=== PATIENT | female | born 1995 | race Caucasian/White ===

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

== ENCOUNTER 2017-01-02 11:31 | Emergency (ER) | payer OTHER ==
[~2017-01-02] VITALS: Ht 167.6 cm; Wt 81.0 kg
[~2017-01-02 11:31] MED LIST changes: +FLEXERIL10 MG PO; +NAPROSYN500 MG PO
[2017-01-02 16:19] VITALS: BP 123/83
== END 2017-01-02 16:42 | disposition home or self-care (01) ==
LOC: EME 11:31
DX: F32.9 Major depressive disorder, single episode, unspecified (principal); F43.20 Adjustment disorder, unspecified
CPT/HCPCS: 90837; 99281; 99284

== ENCOUNTER 2017-01-22 11:37 | Inpatient (IN) | payer OTHER ==
[~2017-01-22] VITALS: Ht 160 cm; Wt 106.3 kg
[2017-01-22 12:52] LABS: ADD MIUA? YES; BILIRUBIN NEGATIVE; BLOOD NEGATIVE; COLOR YELLOW ((YELLOW)); GLUCOSE (STRIP) NEGATIVE; KETONES NEGATIVE; LEUKOCYTES NEGATIVE; NITRITE NEGATIVE; PROTEIN (STRIP) 30; SPECIFIC GRAVITY 1.015 (1.000-1.030); UROBILINOGEN 0.2 MG/DL (0.2-1.0)
[2017-01-22 13:14] LABS: AMPHETAMINE NEGATIVE (500 ng/mL); BENZODIAZEPINES PRESUMPTIVE POSITIVE (150 ng/mL); COCAINE NEGATIVE (150 ng/mL); METHAMPHETAMINE NEGATIVE (500 ng/mL); OPIATES (MORPHINE) NEGATIVE (100 ng/mL); PHENCYCLIDINE NEGATIVE (25 ng/mL); THC CANNABINOIDS NEGATIVE (50 ng/mL)
[2017-01-22 13:15] LABS: ADD MEDTOX COMMENT Y; BARBITURATES NEGATIVE (200 ng/mL); INTERNAL CONTROLS VALID? YES; METHADONE NEGATIVE (200 ng/mL); OXYCODONE NEGATIVE (100 ng/mL); PROPOXYPHENE NEGATIVE (300 ng/mL); TRICYCLIC ANTIDEPRESSANTS NEGATIVE (300 ng/mL)
[2017-01-22 13:34] LABS: RED BLOOD CELLS NONE SEEN /HPF (0-5); WHITE BLOOD CELLS 0-5 /HPF (0-5)
[2017-01-22 13:35] LABS: AMORPHOUS PHOSPHATE CRYSTALS 2+; BACTERIA 3+ /HPF; CASTS NONE SEEN /LPF; CRYSTALS PRESENT; EPITHELIAL CELLS 1+ /HPF; MUCUS NONE SEEN /LPF
[2017-01-22 13:48] LABS: BENZODIAZEPINES QUANT VALUE 0 NG/ML; BENZODIAZEPINES, URINE SCREEN Negative (200 ng/mL)
[2017-01-22 14:09] LABS: EOSINOPHIL (%) 1.3 % (0-5); EOSINOPHIL COUNT 0.1 K/uL (0-0.3); HEMATOCRIT 43.6 % (36.0-46.0); IMMATURE GRANULOCYTE (%) 0.5 % (0.0-0.7); INSTRUMENT ABS NEUTROPHIL CT 5.9 K/uL; LYMPHOCYTE COUNT 2.1 K/uL (1.0-2.8); MCH 30.8 PG (29.0-34.0); MCHC 33.5 G/DL (30.0-36.0); MEAN PLAT.VOLUME 9.3 uM^3 (9.5-12.4); MONOCYTE (%) 6.5 % (3-12); MONOCYTE COUNT 0.6 K/uL (0-0.8); NEUTROPHIL (%) 67.5 % (45-76); NEUTROPHIL COUNT 5.9 K/uL (1.8-6.4); PLATELET COUNT 265 K/uL (156-360); RBC DIS.WIDTH-CV 12.3 % (11.8-14.6); RBC DIS.WIDTH-SD 41.8 % (39-53); RED BLOOD COUNT 4.74 M/uL (3.80-5.20); WHITE BLOOD COUNT 8.7 K/uL (4.1-10.2)
[2017-01-22 14:17] LABS: CHLORIDE 109 mEq/L (99-109); POTASSIUM 4.3 mEq/L (3.7-5.4); SODIUM 138 mEq/L (136-147)
[2017-01-22 14:19] LABS: GLUCOSE 122 mg/dL (70-99)
[2017-01-22 14:21] LABS: ANION GAP 8 MEQ/L (2-14)
[2017-01-22 14:22] LABS: SERUM ETHYL ALCOHOL < 10 mg/dL
[2017-01-22 14:23] LABS: GFR ESTIMATE (CALCULATED) > 59 mL/min/
[2017-01-22 14:24] LABS: UREA NITROGEN (BUN) 9 mg/dL (9-23)
[2017-01-22 14:32] LABS: QUANTITATIVE HCG < 4.0 MIU/ML
[2017-01-22 16:36] VITALS: BP 126/79
[2017-01-22] MEDS ORDERED: TOPIRAMATE50 MG PO (16:51)
[2017-01-22] MEDS ORDERED: DIVALPROEX SOD500 M1 PO (16:53)
[2017-01-22] MEDS ORDERED: LORAZEPAM0.5 MG PO (16:55)
[2017-01-22] MEDS ORDERED: ABILIFY5 MG PO (16:56)
[2017-01-22 17:26] VITALS: BP 126/79
[2017-01-23 08:04] VITALS: BP 125/62
[2017-01-23 15:28] VITALS: BP 122/71
[2017-01-24 07:26] VITALS: BP 119/58
[2017-01-24 15:38] VITALS: BP 124/71
[2017-01-25 07:34] VITALS: BP 97/58
[2017-01-25 16:34] VITALS: BP 113/56
[2017-01-26 07:59] VITALS: BP 113/67
[2017-01-26] MEDS ORDERED: DESYREL100 MG PO (09:02)
[2017-01-26] MEDS ORDERED: ARIPIPRAZOLE5 MG PO (09:02)
== END 2017-01-26 11:04 | disposition home or self-care (01) | DRG 882 ==
LOC: EME 11:37 → 1WEST 13:25 → EDOF 13:25 → 1WEST 16:33
PROVIDERS: Emergency Medicine
DX: F43.23 Adjustment disorder with mixed anxiety and depressed mood (principal); F70 Mild intellectual disabilities; R45.851 Suicidal ideations
CPT/HCPCS: 80048; 80164; 81003; 82306; 82607; 82746; 84443; 84702; 84999; 85025; 90839; 97150 GO; 97165 GO; 99281; 99285; G0480

== ENCOUNTER 2017-04-15 20:06 | Inpatient (IN) | payer OTHER ==
[~2017-04-15] VITALS: Ht 160 cm; Wt 105.7 kg
[~2017-04-15 20:06] MED LIST changes: +ABILIFY5 MG PO; +ARIPIPRAZOLE5 MG PO; +DESYREL100 MG PO; +DIVALPROEX SOD500 M1 PO; +LORAZEPAM0.5 MG PO; +TOPIRAMATE50 MG PO
[2017-04-15 20:29] LABS: BASOPHIL COUNT 0.1 K/uL (0-0.1); EOSINOPHIL (%) 1.9 % (0-5); EOSINOPHIL COUNT 0.2 K/uL (0-0.3); IMMATURE GRANULOCYTE (%) 0.3 % (0.0-0.7); INSTRUMENT ABS NEUTROPHIL CT 4.9 K/uL; LYMPHOCYTE COUNT 3.2 K/uL (1.0-2.8); MCH 30.8 PG (29.0-34.0); MCV 93.3 FL (83-99); MONOCYTE (%) 8.3 % (3-12); MONOCYTE COUNT 0.8 K/uL (0-0.8); NEUTROPHIL (%) 53.5 % (45-76); NEUTROPHIL COUNT 4.9 K/uL (1.8-6.4); PLATELET COUNT 293 K/uL (156-360); RBC DIS.WIDTH-CV 12.1 % (11.8-14.6); RBC DIS.WIDTH-SD 42.1 % (39-53); RED BLOOD COUNT 4.61 M/uL (3.80-5.20); WHITE BLOOD COUNT 9.1 K/uL (4.1-10.2)
[2017-04-15 20:39] LABS: CHLORIDE 109 mEq/L (99-109); POTASSIUM 3.9 mEq/L (3.7-5.4); SODIUM 137 mEq/L (136-147)
[2017-04-15 20:41] LABS: GLUCOSE 93 mg/dL (70-99)
[2017-04-15 20:43] LABS: ANION GAP 9 MEQ/L (2-14); TOTAL BILIRUBIN 0.3 mg/dL (0.0-1.0)
[2017-04-15 20:44] LABS: SERUM ETHYL ALCOHOL < 10 mg/dL
[2017-04-15 20:45] LABS: GFR ESTIMATE (CALCULATED) > 59 mL/min/
[2017-04-15 20:46] LABS: ALKALINE PHOSPHATASE 140 IU/L (3-129)
[2017-04-15 20:47] LABS: UREA NITROGEN (BUN) 13 mg/dL (9-23)
[2017-04-15 20:49] LABS: SALICYLATE < 5.0 MG/DL (15-30)
[2017-04-15 20:55] LABS: QUANTITATIVE HCG < 4.0 MIU/ML
[2017-04-15 21:03] LABS: ADD MEDTOX COMMENT Y; AMPHETAMINE NEGATIVE (500 ng/mL); BARBITURATES NEGATIVE (200 ng/mL); BENZODIAZEPINES PRESUMPTIVE POSITIVE (150 ng/mL); COCAINE NEGATIVE (150 ng/mL); INTERNAL CONTROLS VALID? YES; METHADONE NEGATIVE (200 ng/mL); METHAMPHETAMINE NEGATIVE (500 ng/mL); OPIATES (MORPHINE) NEGATIVE (100 ng/mL); OXYCODONE NEGATIVE (100 ng/mL); PHENCYCLIDINE NEGATIVE (25 ng/mL); PROPOXYPHENE NEGATIVE (300 ng/mL); THC CANNABINOIDS NEGATIVE (50 ng/mL); TRICYCLIC ANTIDEPRESSANTS NEGATIVE (300 ng/mL)
[2017-04-15 21:33] LABS: BENZODIAZEPINES QUANT VALUE 0 NG/ML; BENZODIAZEPINES, URINE SCREEN Negative (200 ng/mL)
[2017-04-16 03:16] VITALS: BP 112/74
[2017-04-16 08:21] VITALS: BP 134/82
[2017-04-16 16:30] VITALS: BP 124/69
[2017-04-17 08:00] VITALS: BP 120/69
[2017-04-17 15:19] VITALS: BP 134/88
[2017-04-18 08:46] VITALS: BP 132/69
[2017-04-18 15:58] VITALS: BP 137/80
[2017-04-19 08:12] VITALS: BP 123/62
[2017-04-19 15:41] VITALS: BP 125/62
[2017-04-20] MEDS ORDERED: SERTRALINE HCL50 MG PO (08:53)
[2017-04-20 08:56] VITALS: BP 128/72
== END 2017-04-20 12:03 | disposition home or self-care (01) | DRG 885 ==
LOC: EME 20:06 → EDOF 04-16 00:04 → 1WEST 04-16 00:04 → ENRESERV 04-16 00:33 → 1WEST 04-16 03:07
PROVIDERS: Emergency Medicine
DX: F33.2 Major depressive disorder, recurrent severe without psychotic features (principal); E66.9 Obesity, unspecified; F70 Mild intellectual disabilities; T42.4X1A Poisoning by benzodiazepines, accidental (unintentional), initial encounter; Z91.5 Personal history of self-harm; F17.200 Nicotine dependence, unspecified, uncomplicated; F43.23 Adjustment disorder with mixed anxiety and depressed mood
CPT/HCPCS: 80053; 80164; 84702; 84999; 85025; 90839; 97150 GO; 97165 GO; 99281; 99285; G0480

== ENCOUNTER 2017-05-05 16:24 | Emergency (ER) | payer OTHER ==
[~2017-05-05] VITALS: Ht 160 cm; Wt 106.0 kg
[~2017-05-05 16:24] MED LIST changes: +SERTRALINE HCL50 MG PO
[2017-05-05 17:39] LABS: CHLORIDE 108 mEq/L (99-109); POTASSIUM 3.6 mEq/L (3.7-5.4); SODIUM 140 mEq/L (136-147)
[2017-05-05 17:41] LABS: GLUCOSE 101 mg/dL (70-99)
[2017-05-05 17:42] LABS: ANION GAP 12 MEQ/L (2-14)
[2017-05-05 17:44] LABS: SERUM ETHYL ALCOHOL < 10 mg/dL
[2017-05-05 17:45] LABS: GFR ESTIMATE (CALCULATED) > 59 mL/min/
[2017-05-05 17:46] LABS: UREA NITROGEN (BUN) 14 mg/dL (9-23)
[2017-05-05 17:48] LABS: SALICYLATE < 5.0 MG/DL (15-30)
[2017-05-05 17:56] LABS: QUANTITATIVE HCG < 4.0 MIU/ML
[2017-05-05 23:29] LABS: AMPHETAMINE NEGATIVE (500 ng/mL); BARBITURATES NEGATIVE (200 ng/mL); BENZODIAZEPINES NEGATIVE (150 ng/mL); COCAINE NEGATIVE (150 ng/mL); METHADONE NEGATIVE (200 ng/mL); METHAMPHETAMINE NEGATIVE (500 ng/mL); OPIATES (MORPHINE) NEGATIVE (100 ng/mL); OXYCODONE NEGATIVE (100 ng/mL); PHENCYCLIDINE NEGATIVE (25 ng/mL); THC CANNABINOIDS NEGATIVE (50 ng/mL); TRICYCLIC ANTIDEPRESSANTS NEGATIVE (300 ng/mL)
[2017-05-05 23:30] LABS: INTERNAL CONTROLS VALID? YES; PROPOXYPHENE NEGATIVE (300 ng/mL)
[2017-05-06 03:20] VITALS: BP 132/96
== END 2017-05-06 03:36 ==
LOC: EME 16:24
PROVIDERS: Emergency Medicine
DX: T43.022A Poisoning by tetracyclic antidepressants, intentional self-harm, initial encounter (principal); F41.9 Anxiety disorder, unspecified; F33.1 Major depressive disorder, recurrent, moderate; F90.9 Attention-deficit hyperactivity disorder, unspecified type; F17.200 Nicotine dependence, unspecified, uncomplicated
CPT/HCPCS: 80048; 84702; 90837; 99281; 99285; G0480

== ENCOUNTER 2017-06-05 11:58 | Emergency (ER) | payer OTHER ==
[~2017-06-05] VITALS: Ht 160 cm; Wt 79.4 kg
[2017-06-05 12:40] LABS: EOSINOPHIL (%) 1.2 % (0-5); EOSINOPHIL COUNT 0.1 K/uL (0-0.3); IMMATURE GRANULOCYTE (%) 0.8 % (0.0-0.7); IMMATURE GRANULOCYTE COUNT 0.1 K/uL; INSTRUMENT ABS NEUTROPHIL CT 4.9 K/uL; LYMPHOCYTE COUNT 2.1 K/uL (1.0-2.8); MCH 30.7 PG (29.0-34.0); MCHC 32.8 G/DL (30.0-36.0); MCV 93.5 FL (83-99); MONOCYTE (%) 6.6 % (3-12); MONOCYTE COUNT 0.5 K/uL (0-0.8); NEUTROPHIL (%) 64.1 % (45-76); NEUTROPHIL COUNT 4.9 K/uL (1.8-6.4); PLATELET COUNT 264 K/uL (156-360); RBC DIS.WIDTH-CV 12.1 % (11.8-14.6); RBC DIS.WIDTH-SD 42.2 % (39-53); WHITE BLOOD COUNT 7.7 K/uL (4.1-10.2)
[2017-06-05 12:43] LABS: ADD MIUA? NO; BILIRUBIN NEGATIVE; BLOOD NEGATIVE; COLOR YELLOW ((YELLOW)); GLUCOSE (STRIP) NEGATIVE; KETONES NEGATIVE; LEUKOCYTES NEGATIVE; NITRITE NEGATIVE; PROTEIN (STRIP) NEGATIVE; SPECIFIC GRAVITY 1.017 (1.000-1.030); UCUL ADDED? NO; UROBILINOGEN 0.2 MG/DL (0.2-1.0)
[2017-06-05 12:49] LABS: CHLORIDE 108 mEq/L (99-109); POTASSIUM 4.1 mEq/L (3.7-5.4); SODIUM 137 mEq/L (136-147)
[2017-06-05 12:52] LABS: GLUCOSE 92 mg/dL (70-99)
[2017-06-05 12:53] LABS: ANION GAP 8 MEQ/L (2-14)
[2017-06-05 12:53] LABS: AMPHETAMINE NEGATIVE (500 ng/mL); BARBITURATES NEGATIVE (200 ng/mL); BENZODIAZEPINES NEGATIVE (150 ng/mL); COCAINE NEGATIVE (150 ng/mL); INTERNAL CONTROLS VALID? YES; METHADONE NEGATIVE (200 ng/mL); METHAMPHETAMINE NEGATIVE (500 ng/mL); OPIATES (MORPHINE) NEGATIVE (100 ng/mL); OXYCODONE NEGATIVE (100 ng/mL); PHENCYCLIDINE NEGATIVE (25 ng/mL); PROPOXYPHENE NEGATIVE (300 ng/mL); THC CANNABINOIDS NEGATIVE (50 ng/mL); TRICYCLIC ANTIDEPRESSANTS NEGATIVE (300 ng/mL)
[2017-06-05 12:54] LABS: TOTAL BILIRUBIN 0.3 mg/dL (0.0-1.0)
[2017-06-05 12:55] LABS: SERUM ETHYL ALCOHOL < 10 mg/dL
[2017-06-05 12:56] LABS: ALKALINE PHOSPHATASE 144 IU/L (3-129); GFR ESTIMATE (CALCULATED) > 59 mL/min/
[2017-06-05 12:57] LABS: UREA NITROGEN (BUN) 15 mg/dL (9-23)
[2017-06-05 12:59] LABS: SALICYLATE < 5.0 MG/DL (15-30)
[2017-06-05 13:06] LABS: QUANTITATIVE HCG < 4.0 MIU/ML
[2017-06-05 14:26] VITALS: BP 120/74
== END 2017-06-05 15:19 | disposition home or self-care (01) ==
LOC: EME 11:58
PROVIDERS: Physician Assistant
DX: F43.23 Adjustment disorder with mixed anxiety and depressed mood (principal); F33.1 Major depressive disorder, recurrent, moderate; R45.851 Suicidal ideations; F79 Unspecified intellectual disabilities; F17.200 Nicotine dependence, unspecified, uncomplicated
CPT/HCPCS: 80053; 81003; 84702; 85025; 90837; 99281; 99285; G0480

== ENCOUNTER 2017-07-02 17:17 | Emergency (ER) | payer OTHER ==
[~2017-07-02] VITALS: Ht 160 cm; Wt 113.6 kg
[2017-07-02 18:15] LABS: EOSINOPHIL (%) 1.8 % (0-5); EOSINOPHIL COUNT 0.2 K/uL (0-0.3); HEMATOCRIT 42.8 % (36.0-46.0); IMMATURE GRANULOCYTE (%) 0.6 % (0.0-0.7); IMMATURE GRANULOCYTE COUNT 0.1 K/uL; LYMPHOCYTE COUNT 2.9 K/uL (1.0-2.8); MCH 31.3 PG (29.0-34.0); MCHC 33.6 G/DL (30.0-36.0); MEAN PLAT.VOLUME 8.8 uM^3 (9.5-12.4); MONOCYTE (%) 7.7 % (3-12); MONOCYTE COUNT 0.9 K/uL (0-0.8); NEUTROPHIL (%) 63.2 % (45-76); PLATELET COUNT 253 K/uL (156-360); RBC DIS.WIDTH-CV 12.6 % (11.8-14.6); RBC DIS.WIDTH-SD 42.7 % (39-53)
[2017-07-02 18:23] LABS: CHLORIDE 106 mEq/L (99-109); POTASSIUM 4.1 mEq/L (3.7-5.4); SODIUM 138 mEq/L (136-147)
[2017-07-02 18:25] LABS: GLUCOSE 95 mg/dL (70-99)
[2017-07-02 18:26] LABS: ANION GAP 9 MEQ/L (2-14)
[2017-07-02 18:28] LABS: SERUM ETHYL ALCOHOL < 10 mg/dL
[2017-07-02 18:29] LABS: GFR ESTIMATE (CALCULATED) > 59 mL/min/
[2017-07-02 18:31] LABS: UREA NITROGEN (BUN) 16 mg/dL (9-23)
[2017-07-02 18:32] LABS: SALICYLATE < 5.0 MG/DL (15-30)
[2017-07-02 18:38] LABS: QUANTITATIVE HCG < 4.0 MIU/ML
[2017-07-02 19:42] LABS: ADD MIUA? NO; BILIRUBIN NEGATIVE; BLOOD NEGATIVE; COLOR YELLOW ((YELLOW)); GLUCOSE (STRIP) NEGATIVE; KETONES NEGATIVE; LEUKOCYTES NEGATIVE; NITRITE NEGATIVE; PROTEIN (STRIP) NEGATIVE; SPECIFIC GRAVITY 1.019 (1.000-1.030); UCUL ADDED? NO; UROBILINOGEN 0.2 MG/DL (0.2-1.0)
[2017-07-02 19:49] LABS: AMPHETAMINE NEGATIVE (500 ng/mL); BARBITURATES NEGATIVE (200 ng/mL); BENZODIAZEPINES NEGATIVE (150 ng/mL); COCAINE NEGATIVE (150 ng/mL); INTERNAL CONTROLS VALID? YES; METHADONE NEGATIVE (200 ng/mL); METHAMPHETAMINE NEGATIVE (500 ng/mL); OPIATES (MORPHINE) NEGATIVE (100 ng/mL); OXYCODONE NEGATIVE (100 ng/mL); PHENCYCLIDINE NEGATIVE (25 ng/mL); PROPOXYPHENE NEGATIVE (300 ng/mL); THC CANNABINOIDS NEGATIVE (50 ng/mL); TRICYCLIC ANTIDEPRESSANTS NEGATIVE (300 ng/mL)
[2017-07-02 23:11] VITALS: BP 128/84
== END 2017-07-02 23:12 ==
LOC: EME → EDBD 17:17 → EME 17:17
PROVIDERS: Emergency Medicine
DX: F33.2 Major depressive disorder, recurrent severe without psychotic features (principal); R45.851 Suicidal ideations; F70 Mild intellectual disabilities; S60.812A Abrasion of left wrist, initial encounter; X78.8XXA Intentional self-harm by other sharp object, initial encounter; Z91.5 Personal history of self-harm; Z72.0 Tobacco use
CPT/HCPCS: 80048; 81003; 84702; 85025; 90837; 93005; 99281; 99284; G0480

== ENCOUNTER 2018-03-08 19:58 | Inpatient (IN) | payer OTHER ==
[~2018-03-08] VITALS: Ht 160 cm; Wt 116.6 kg
[2018-03-08 21:12] LABS: HEMATOCRIT 39.6 % (36.0-46.0); HEMOGLOBIN 13.2 G/DL (11.9-15.5); MCH 32.8 PG (29.0-34.0); MCHC 33.3 G/DL (30.0-36.0); MCV 98.5 FL (83-99); PLATELET COUNT 286 K/uL (156-360); RBC DIS.WIDTH-CV 12.6 % (11.8-14.6); RED BLOOD COUNT 4.02 M/uL (3.80-5.20); WHITE BLOOD COUNT 8.3 K/uL (4.1-10.2)
[2018-03-08 21:14] LABS: AMPHETAMINE NEGATIVE (500 ng/mL); BARBITURATES NEGATIVE (200 ng/mL); BENZODIAZEPINES NEGATIVE (150 ng/mL); BUPRENORPHINE NEGATIVE (10 ng/mL); COCAINE NEGATIVE (150 ng/mL); METHADONE NEGATIVE (200 ng/mL); METHAMPHETAMINE NEGATIVE (500 ng/mL); OPIATES (MORPHINE) NEGATIVE (100 ng/mL); OXYCODONE NEGATIVE (100 ng/mL); PHENCYCLIDINE NEGATIVE (25 ng/mL); PROPOXYPHENE NEGATIVE (300 ng/mL); THC CANNABINOIDS NEGATIVE (50 ng/mL); TRICYCLIC ANTIDEPRESSANTS PRESUMPTIVE POSITIVE (300 ng/mL)
[2018-03-08 21:20] LABS: CHLORIDE 109 mEq/L (99-109); POTASSIUM 3.7 mEq/L (3.7-5.4); SODIUM 139 mEq/L (136-147)
[2018-03-08 21:22] LABS: GLUCOSE 108 mg/dL (70-99)
[2018-03-08 21:25] LABS: CREATININE 0.8 mg/dL (0.6-1.3); GFR ESTIMATE (CALCULATED) > 59 mL/min/; SERUM ETHYL ALCOHOL < 10 mg/dL
[2018-03-08 21:27] LABS: UREA NITROGEN (BUN) 9 mg/dL (9-23)
[2018-03-08 21:29] LABS: ACETAMINOPHEN (TYLENOL) < 10 mcg/mL (10-30); SALICYLATE < 5.0 MG/DL (15-30)
[2018-03-08] MEDS ORDERED: TOPIRAMATE100 MG PO (22:58)
[2018-03-08] MEDS ORDERED: LEXAPRO20 MG PO (22:59)
[2018-03-08] MEDS ORDERED: SEROQUEL XR300 MG PO (22:59)
[2018-03-08] MEDS ORDERED: TRAZODONE HCL50 MG PO (22:59)
[2018-03-08] MEDS ORDERED: LITHOBID300 MG PO (22:59)
[2018-03-08] MEDS ORDERED: QUETIAPINE FUMA50 M1 PO (23:00)
[2018-03-09 00:11] VITALS: BP 124/74
[2018-03-09 07:47] VITALS: BP 127/68
[2018-03-09 16:26] VITALS: BP 123/73
[2018-03-10 08:04] VITALS: BP 125/90
== END 2018-03-10 16:40 | disposition home or self-care (01) | DRG 882 ==
LOC: EME → EDBD 19:58 → EME 19:58 → 1WEST 22:47 → EDOF 22:47 → 1WEST 22:47 → ENRESERV 03-09 00:01 → 1WEST 03-09 00:01
PROVIDERS: Emergency Medicine
DX: F43.25 Adjustment disorder with mixed disturbance of emotions and conduct (principal); F33.2 Major depressive disorder, recurrent severe without psychotic features; F79 Unspecified intellectual disabilities; R45.851 Suicidal ideations; F17.200 Nicotine dependence, unspecified, uncomplicated; F90.9 Attention-deficit hyperactivity disorder, unspecified type; F41.9 Anxiety disorder, unspecified; E66.01 Morbid (severe) obesity due to excess calories; Z91.5 Personal history of self-harm
CPT/HCPCS: 80048; 80178; 85027; 90837; 99281; 99284; G0480; J1630